=== PATIENT | male | born 1940 | race Two or more races ===

== ENCOUNTER 2020-02-21 13:44 | Inpatient (IN) | payer MEDICARE, OTHER ==
[~2020-02-21] VITALS: Ht 177.8 cm; Wt 96.7 kg
[2020-02-21] MEDS ORDERED: SODIUM CHLORIDE 0.9% 1,000 ML IV ONE (14:15)
[2020-02-21 14:19] LABS: Basophils # (auto) 0 10 ^3/uL (0-0.2); Basophils % (auto) 0.3 % (0.0-2.0); Eosinophils # (auto) 0 10 ^3/uL (0-0.8); Eosinophils % (auto) 0.1 % (0.0-7.0); Hematocrit 40.7 % (41.0-53.0); Hemoglobin 13.9 g/dL (13.5-17.5); Lymphocytes # (auto) 0.8 10 ^3/uL (0.4-5.4); Lymphocytes % (auto) 10.5 % (10.0-50.0); Mean Corpuscular Hemoglobin 29.8 pg (28.0-32.0); Mean Corpuscular Hgb Conc. 34.1 g/dL (32.0-36.0); Mean Corpuscular Volume 87.3 fL (80.0-100.0); Monocytes # (auto) 0.6 10 ^3/uL (0-1.3); Monocytes % (auto) 8.4 % (0.0-12.0); Neutrophils % (auto) 80.7 % (37.0-80.0); Nucleated Red Blood Cells % 0.2 %; Platelet Count (auto) 258 10^3/uL (140-450); Red Blood Cells 4.66 10^6/uL (4.5-5.90); Red Cell Distribution Width 13.6 % (11.8-14.3); White Blood Cell 7.4 10^3/uL (4.4-10.8)
[2020-02-21 14:31] LABS: INR 1.04 (0.9-1.15); Partial Thromboplastin Time 26.1 sec (23.0-31.2)
[2020-02-21 14:34] LABS: Alanine Aminotransferase 26 U/L (16-61); Albumin 3.4 g/dL (3.4-5.0); Anion Gap 9 (5-15); BUN/Creatinine Ratio 22.7; Blood Urea Nitrogen 63 mg/dL (7-18); Calcium 8.8 mg/dL (8.5-10.1); Carbon Dioxide 20 mmol/L (21-32); Chloride 104 mmol/L (98-107); GFR African American 28 mL/min; GFR Non-African American 24 mL/min; Glucose 110 mg/dL (74-106); Potassium 4.6 mmol/L (3.5-5.1); Sodium 133 mmol/L (136-145)
[2020-02-21 14:39] LABS: Alkaline Phosphatase 64 U/L (45-117); Aspartate Aminotransferase 39 U/L (15-37); Bilirubin, Total 0.8 mg/dL (0.2-1.0); Total Protein 8.1 g/dL (6.4-8.2)
[2020-02-21] MEDS ORDERED: NITROGLYCERIN 0.4 MG SL TAB SL PRN (17:45)
[2020-02-21] MEDS ORDERED: ONDANSETRON HCL 4 MG/2 ML VIAL IV PRN (17:45)
[2020-02-21] MEDS ORDERED: MORPHINE SULF INJ 2 MG/ML SYRINGE 1ML IV PRN (17:45)
[2020-02-21] MEDS ORDERED: REMDESIVIR PER PHARMACY 0 ML IV SCH (17:45)
[2020-02-22 07:46] LABS: Basophils # (auto) 0.1 10 ^3/uL (0-0.2); Basophils % (auto) 1.5 % (0.0-2.0); Eosinophils # (auto) 0 10 ^3/uL (0-0.8); Hematocrit 36.6 % (41.0-53.0); Hemoglobin 12.4 g/dL (13.5-17.5); Lymphocytes # (auto) 0.4 10 ^3/uL (0.4-5.4); Lymphocytes % (auto) 7.2 % (10.0-50.0); Mean Corpuscular Hemoglobin 29.9 pg (28.0-32.0); Mean Corpuscular Hgb Conc. 33.9 g/dL (32.0-36.0); Mean Corpuscular Volume 88.3 fL (80.0-100.0); Monocytes # (auto) 0.4 10 ^3/uL (0-1.3); Neutrophils # (auto) 4.3 10 ^3/uL (1.6-8.6); Neutrophils % (auto) 84.3 % (37.0-80.0); Nucleated Red Blood Cells % 0.3 %; Platelet Count (auto) 183 10^3/uL (140-450); Red Blood Cells 4.14 10^6/uL (4.5-5.90); Red Cell Distribution Width 13.9 % (11.8-14.3); White Blood Cell 5.1 10^3/uL (4.4-10.8)
[2020-02-22 08:07] LABS: Potassium 4.8 mmol/L (3.5-5.1)
[2020-02-22 08:48] LABS: Albumin 2.7 g/dL (3.4-5.0); BUN/Creatinine Ratio 23.8; Bilirubin, Total 0.7 mg/dL (0.2-1.0); Calcium 8.2 mg/dL (8.5-10.1); Total Protein 6.9 g/dL (6.4-8.2)
[2020-02-22] MEDS ORDERED: cefTRIAXone 1GM/50ML D5W 50 ML IV ONE ×2 (11:30→11:35)
[2020-02-22] MEDS ORDERED: SODIUM CHLORIDE 0.9% 1,000 ML IV ONE (11:30)
[2020-02-22] MEDS: CHOLECALCIFEROL (VITD3) 2,000 UNIT CAP PO SCH (11:30)
[2020-02-22] MEDS: ZINC SULFATE 220mg CAP or TAB PO SCH (11:42)
[2020-02-22] MEDS: PANTOPRAZOLE 40 MG/10 ML VIAL INJ IV SCH (11:42)
[2020-02-22] MEDS: ASCORBIC ACID 1,000 MG TAB PO SCH (11:43)
[2020-02-22] MEDS: ENOXAPARIN SOD 40 MG/0.4 ML SYRINGE SC SCH (11:43)
[2020-02-22] MEDS: D5W/SOD CHL 0.45% 1,000 ML IV SCH (14:00)
[2020-02-22] MEDS: ACETAMINOPHEN 325 MG TAB PO PRN (20:29)
[2020-02-22] MEDS ORDERED: REMDESIVIR 200 MG in NS 210ml LOADING DOSE ADULT IV ONE (21:00)
[2020-02-23] VITALS (10 sets, daily range): BP systolic 107–155; BP diastolic 52–73
[2020-02-23] MEDS: D5W/SOD CHL 0.45% 1,000 ML IV SCH ×2 (01:29→11:28)
[2020-02-23 09:37] LABS: Calcium 8.3 mg/dL (8.5-10.1); Potassium 3.7 mmol/L (3.5-5.1)
[2020-02-23 09:43] LABS: Albumin 2.7 g/dL (3.4-5.0); BUN/Creatinine Ratio 23.9; Bilirubin, Direct 0.3 mg/dL (0-0.2); Bilirubin, Total 0.6 mg/dL (0.2-1.0); Total Protein 7.4 g/dL (6.4-8.2)
[2020-02-23] MEDS: ZINC SULFATE 220mg CAP or TAB PO SCH (10:00)
[2020-02-23] MEDS: ASCORBIC ACID 1,000 MG TAB PO SCH (10:00)
[2020-02-23] MEDS: CHOLECALCIFEROL (VITD3) 2,000 UNIT CAP PO SCH (10:00)
[2020-02-23] MEDS: cefTRIAXone 1GM/50ML D5W 50 ML IV SCH (11:28)
[2020-02-23] MEDS: ENOXAPARIN SOD 40 MG/0.4 ML SYRINGE SC SCH (11:29)
[2020-02-23] MEDS: PANTOPRAZOLE 40 MG/10 ML VIAL INJ IV SCH (13:44)
[2020-02-23] MEDS: REMDESIVIR 100 MG in SODIUM CHL 0.9% 250 ML IV SCH (16:36)
[2020-02-24] VITALS (9 sets, daily range): BP systolic 108–149; BP diastolic 53–73
[2020-02-24] MEDS: D5W/SOD CHL 0.45% 1,000 ML IV SCH (03:30)
[2020-02-24 08:22] LABS: Potassium 3.6 mmol/L (3.5-5.1)
[2020-02-24 08:35] LABS: Albumin 2.6 g/dL (3.4-5.0); Bilirubin, Direct 0.3 mg/dL (0-0.2); Bilirubin, Total 0.6 mg/dL (0.2-1.0); Calcium 8.3 mg/dL (8.5-10.1); Total Protein 7.2 g/dL (6.4-8.2)
[2020-02-24] MEDS: cefTRIAXone 1GM/50ML D5W 50 ML IV SCH (09:00)
[2020-02-24] MEDS: PANTOPRAZOLE 40 MG/10 ML VIAL INJ IV SCH (10:00)
[2020-02-24] MEDS: ASCORBIC ACID 1,000 MG TAB PO SCH (10:00)
[2020-02-24] MEDS: ZINC SULFATE 220mg CAP or TAB PO SCH (10:00)
[2020-02-24] MEDS: CHOLECALCIFEROL (VITD3) 2,000 UNIT CAP PO SCH (10:00)
[2020-02-24] MEDS: ENOXAPARIN SOD 40 MG/0.4 ML SYRINGE SC SCH (10:00)
[2020-02-24] MEDS ORDERED: [UNRECOGNIZED DRUG - OTHER] IV SCH (11:15)
[2020-02-24] MEDS ORDERED: POTASSIUM CHLORIDE IV SCH (11:15)
[2020-02-24] MEDS ORDERED: SODIUM BICARBONATE IV SCH (11:15)
[2020-02-24] MEDS: Ensure HIGH Protein Chocolate 8oz Bottle PO SCH ×2 (12:00→18:00)
[2020-02-24] MEDS: DexAMETHasone SOD PHOS 10MG/1ML VIAL INJ IV SCH (14:45)
[2020-02-24] MEDS ORDERED: SODIUM CHLORIDE 0.9% 1,000 ML IV ONE (15:00)
[2020-02-24] MEDS: REMDESIVIR 100 MG in SODIUM CHL 0.9% 250 ML IV SCH (16:24)
[2020-02-24] MEDS: SODIUM BICARBONATE 50ML VIAL 50 ML in D5W/SOD CHL 0.45%/KCL 20MEQ 1,000 ML IV SCH (20:23)
[2020-02-25] MEDS: SODIUM BICARBONATE 50ML VIAL 50 ML in D5W/SOD CHL 0.45%/KCL 20MEQ 1,000 ML IV SCH ×2 (02:53→17:13)
[2020-02-25] MEDS: Ensure HIGH Protein Chocolate 8oz Bottle PO SCH ×3 (08:00→18:39)
[2020-02-25 08:17] VITALS: BP 117/67
[2020-02-25 09:57] LABS: BUN/Creatinine Ratio 30.5; Calcium 8.1 mg/dL (8.5-10.1); Potassium 3.3 mmol/L (3.5-5.1)
[2020-02-25 10:13] LABS: Albumin 2.3 g/dL (3.4-5.0); Bilirubin, Direct 0.2 mg/dL (0-0.2)
[2020-02-25 10:16] LABS: Bilirubin, Total 0.4 mg/dL (0.2-1.0); Total Protein 6.8 g/dL (6.4-8.2)
[2020-02-25] MEDS: ZINC SULFATE 220mg CAP or TAB PO SCH (10:27)
[2020-02-25] MEDS: ASCORBIC ACID 1,000 MG TAB PO SCH (10:27)
[2020-02-25] MEDS: PANTOPRAZOLE 40 MG/10 ML VIAL INJ IV SCH (10:27)
[2020-02-25] MEDS: DexAMETHasone SOD PHOS 10MG/1ML VIAL INJ IV SCH (10:27)
[2020-02-25] MEDS: cefTRIAXone 1GM/50ML D5W 50 ML IV SCH (10:27)
[2020-02-25] MEDS: ENOXAPARIN SOD 40 MG/0.4 ML SYRINGE SC SCH (10:28)
[2020-02-25] MEDS: CHOLECALCIFEROL (VITD3) 2,000 UNIT CAP PO SCH (10:28)
[2020-02-25] MEDS ORDERED: POTASSIUM CHL 20 Meq TABLET PO ONE (11:15)
[2020-02-25] MEDS: REMDESIVIR 100 MG in SODIUM CHL 0.9% 250 ML IV SCH (15:41)
[2020-02-25 16:25] VITALS: BP 119/70
[2020-02-25 22:00] VITALS: BP 155/67
[2020-02-26 05:53] VITALS: BP 122/71
[2020-02-26] MEDS: SODIUM BICARBONATE 50ML VIAL 50 ML in D5W/SOD CHL 0.45%/KCL 20MEQ 1,000 ML IV SCH ×2 (05:58→22:20)
[2020-02-26 07:46] LABS: Albumin 2.1 g/dL (3.4-5.0); Calcium 7.5 mg/dL (8.5-10.1); Potassium 4.1 mmol/L (3.5-5.1)
[2020-02-26 07:51] LABS: BUN/Creatinine Ratio 33.8; Bilirubin, Direct 0.2 mg/dL (0-0.2); Bilirubin, Total 0.5 mg/dL (0.2-1.0)
[2020-02-26 09:00] VITALS: BP 117/70
[2020-02-26] MEDS: DexAMETHasone SOD PHOS 10MG/1ML VIAL INJ IV SCH (09:52)
[2020-02-26] MEDS: cefTRIAXone 1GM/50ML D5W 50 ML IV SCH (09:52)
[2020-02-26] MEDS: PANTOPRAZOLE 40 MG/10 ML VIAL INJ IV SCH (09:52)
[2020-02-26] MEDS: ASCORBIC ACID 1,000 MG TAB PO SCH (09:53)
[2020-02-26] MEDS: CHOLECALCIFEROL (VITD3) 2,000 UNIT CAP PO SCH (09:53)
[2020-02-26] MEDS: ZINC SULFATE 220mg CAP or TAB PO SCH (09:53)
[2020-02-26] MEDS: Ensure HIGH Protein Chocolate 8oz Bottle PO SCH ×3 (09:53→18:00)
[2020-02-26] MEDS: ENOXAPARIN SOD 40 MG/0.4 ML SYRINGE SC SCH (09:53)
[2020-02-26] MEDS: REMDESIVIR 100 MG in SODIUM CHL 0.9% 250 ML IV SCH (15:40)
[2020-02-26 16:00] VITALS: BP 119/62
[2020-02-26] MEDS ORDERED: SODIUM BICARBONATE 8.4 % INJ 50ML VIAL IV ONE (20:06)
[2020-02-26 22:18] VITALS: BP 136/53
[2020-02-27 00:39] VITALS: BP 136/53
[2020-02-27] MEDS: diphenhdrAMINE HCL 25 MG CAP PO PRN ×2 (01:37→23:03)
[2020-02-27 05:08] VITALS: BP 112/56
[2020-02-27] MEDS: SODIUM BICARBONATE 50ML VIAL 50 ML in D5W/SOD CHL 0.45%/KCL 20MEQ 1,000 ML IV SCH ×2 (07:25→20:08)
[2020-02-27 07:58] LABS: Albumin 2.2 g/dL (3.4-5.0); BUN/Creatinine Ratio 28.8
[2020-02-27 08:00] VITALS: BP 127/63
[2020-02-27 08:08] LABS: Bilirubin, Total 0.5 mg/dL (0.2-1.0); Calcium 7.3 mg/dL (8.5-10.1); Total Protein 5.6 g/dL (6.4-8.2)
[2020-02-27] MEDS: Ensure HIGH Protein Chocolate 8oz Bottle PO SCH ×3 (08:38→18:54)
[2020-02-27] MEDS: PANTOPRAZOLE 40 MG/10 ML VIAL INJ IV SCH (08:39)
[2020-02-27] MEDS: cefTRIAXone 1GM/50ML D5W 50 ML IV SCH (08:39)
[2020-02-27] MEDS: DexAMETHasone SOD PHOS 10MG/1ML VIAL INJ IV SCH (08:39)
[2020-02-27] MEDS: ASCORBIC ACID 1,000 MG TAB PO SCH (08:40)
[2020-02-27] MEDS: CHOLECALCIFEROL (VITD3) 2,000 UNIT CAP PO SCH (08:40)
[2020-02-27] MEDS: ENOXAPARIN SOD 40 MG/0.4 ML SYRINGE SC SCH (08:40)
[2020-02-27] MEDS: ZINC SULFATE 220mg CAP or TAB PO SCH (08:40)
[2020-02-27 16:00] VITALS: BP 121/65
[2020-02-28] VITALS: BP 136/84
[2020-02-28] MEDS: SODIUM BICARBONATE 50ML VIAL 50 ML in D5W/SOD CHL 0.45%/KCL 20MEQ 1,000 ML IV SCH ×2 (02:33→09:41)
[2020-02-28 08:00] VITALS: BP 143/60
[2020-02-28] MEDS: Ensure HIGH Protein Chocolate 8oz Bottle PO SCH ×3 (08:56→18:53)
[2020-02-28] MEDS: DexAMETHasone SOD PHOS 10MG/1ML VIAL INJ IV SCH (08:56)
[2020-02-28] MEDS: cefTRIAXone 1GM/50ML D5W 50 ML IV SCH (08:56)
[2020-02-28] MEDS: PANTOPRAZOLE 40 MG/10 ML VIAL INJ IV SCH (08:57)
[2020-02-28] MEDS: ZINC SULFATE 220mg CAP or TAB PO SCH (08:57)
[2020-02-28] MEDS: ASCORBIC ACID 1,000 MG TAB PO SCH (08:57)
[2020-02-28] MEDS: ENOXAPARIN SOD 40 MG/0.4 ML SYRINGE SC SCH (08:57)
[2020-02-28] MEDS: CHOLECALCIFEROL (VITD3) 2,000 UNIT CAP PO SCH (08:57)
[2020-02-28 16:00] VITALS: BP 150/88
[2020-02-28] MEDS: diphenhdrAMINE HCL 25 MG CAP PO PRN (21:53)
[2020-02-29] VITALS: BP 138/77
[2020-02-29 06:50] LABS: Basophils # (auto) 0 10 ^3/uL (0-0.2); Basophils % (auto) 0.1 % (0.0-2.0); Eosinophils # (auto) 0 10 ^3/uL (0-0.8); Hematocrit 33.2 % (41.0-53.0); Hemoglobin 11.2 g/dL (13.5-17.5); Lymphocytes # (auto) 0.2 10 ^3/uL (0.4-5.4); Mean Corpuscular Hemoglobin 29.6 pg (28.0-32.0); Mean Corpuscular Hgb Conc. 33.8 g/dL (32.0-36.0); Mean Corpuscular Volume 87.6 fL (80.0-100.0); Monocytes % (auto) 8.8 % (0.0-12.0); Neutrophils # (auto) 10.2 10 ^3/uL (1.6-8.6); Neutrophils % (auto) 89.1 % (37.0-80.0); Platelet Count (auto) 246 10^3/uL (140-450); Red Blood Cells 3.79 10^6/uL (4.5-5.90); Red Cell Distribution Width 13.7 % (11.8-14.3); White Blood Cell 11.4 10^3/uL (4.4-10.8)
[2020-02-29 07:15] LABS: Potassium 4.2 mmol/L (3.5-5.1)
[2020-02-29 07:26] LABS: BUN/Creatinine Ratio 27.7; Calcium 7.7 mg/dL (8.5-10.1)
[2020-02-29] MEDS: Ensure HIGH Protein Chocolate 8oz Bottle PO SCH ×3 (08:00→18:27)
[2020-02-29 09:00] VITALS: BP 152/86
[2020-02-29] MEDS: PANTOPRAZOLE 40 MG/10 ML VIAL INJ IV SCH (10:25)
[2020-02-29] MEDS: DexAMETHasone SOD PHOS 10MG/1ML VIAL INJ IV SCH (10:25)
[2020-02-29] MEDS: ZINC SULFATE 220mg CAP or TAB PO SCH (10:25)
[2020-02-29] MEDS: ENOXAPARIN SOD 40 MG/0.4 ML SYRINGE SC SCH (10:25)
[2020-02-29] MEDS: CHOLECALCIFEROL (VITD3) 2,000 UNIT CAP PO SCH (10:26)
[2020-02-29] MEDS: cefTRIAXone 1GM/50ML D5W 50 ML IV SCH (10:26)
[2020-02-29] MEDS: ASCORBIC ACID 1,000 MG TAB PO SCH (10:26)
[2020-02-29] MEDS: SODIUM BICARBONATE 50ML VIAL 50 ML in D5W/SOD CHL 0.45%/KCL 20MEQ 1,000 ML IV SCH (12:10)
[2020-02-29 16:33] VITALS: BP 141/73
[2020-02-29] MEDS: DOXYCYCLINE 100 MG TAB/CAP PO SCH (21:43)
[2020-02-29] MEDS: diphenhdrAMINE HCL 25 MG CAP PO PRN (21:43)
[2020-03-01] VITALS: BP 149/78
[2020-03-01] MEDS: SODIUM BICARBONATE 50ML VIAL 50 ML in D5W/SOD CHL 0.45%/KCL 20MEQ 1,000 ML IV SCH ×3 (01:05→23:42)
[2020-03-01 08:00] VITALS: BP 125/65
[2020-03-01] MEDS: Ensure HIGH Protein Chocolate 8oz Bottle PO SCH ×3 (08:00→21:00)
[2020-03-01] MEDS: CHOLECALCIFEROL (VITD3) 2,000 UNIT CAP PO SCH (10:04)
[2020-03-01] MEDS: DexAMETHasone SOD PHOS 10MG/1ML VIAL INJ IV SCH (10:04)
[2020-03-01] MEDS: ZINC SULFATE 220mg CAP or TAB PO SCH (10:04)
[2020-03-01] MEDS: DOXYCYCLINE 100 MG TAB/CAP PO SCH ×2 (10:04→21:00)
[2020-03-01] MEDS: PANTOPRAZOLE 40 MG/10 ML VIAL INJ IV SCH (10:04)
[2020-03-01] MEDS: ASCORBIC ACID 1,000 MG TAB PO SCH (10:04)
[2020-03-01] MEDS: ENOXAPARIN SOD 40 MG/0.4 ML SYRINGE SC SCH (10:05)
[2020-03-01 16:00] VITALS: BP 134/64
[2020-03-01] MEDS: diphenhdrAMINE HCL 25 MG CAP PO PRN (21:15)
[2020-03-01] MEDS ORDERED: D5W/SOD CHL 0.45%/KCL 20MEQ 1,000 ML IV ONE (23:25)
[2020-03-01] MEDS ORDERED: SODIUM BICARBONATE 8.4 % INJ 50ML VIAL IV ONE (23:29)
[2020-03-02] VITALS: BP 145/81
[2020-03-02] MEDS: Ensure HIGH Protein Chocolate 8oz Bottle PO SCH ×3 (09:07→17:55)
[2020-03-02] MEDS: DexAMETHasone SOD PHOS 10MG/1ML VIAL INJ IV SCH (09:07)
[2020-03-02] MEDS: PANTOPRAZOLE 40 MG/10 ML VIAL INJ IV SCH (09:07)
[2020-03-02] MEDS: ASCORBIC ACID 1,000 MG TAB PO SCH (09:08)
[2020-03-02] MEDS: ENOXAPARIN SOD 40 MG/0.4 ML SYRINGE SC SCH (09:08)
[2020-03-02] MEDS: CHOLECALCIFEROL (VITD3) 2,000 UNIT CAP PO SCH (09:08)
[2020-03-02] MEDS: DOXYCYCLINE 100 MG TAB/CAP PO SCH ×2 (09:08→20:56)
[2020-03-02] MEDS: ZINC SULFATE 220mg CAP or TAB PO SCH (09:08)
[2020-03-02 11:52] LABS: Basophils # (auto) 0 10 ^3/uL (0-0.2); Basophils % (auto) 0.2 % (0.0-2.0); Eosinophils # (auto) 0 10 ^3/uL (0-0.8); Eosinophils % (auto) 0.1 % (0.0-7.0); Hematocrit 35.4 % (41.0-53.0); Hemoglobin 12.4 g/dL (13.5-17.5); Lymphocytes # (auto) 0.1 10 ^3/uL (0.4-5.4); Lymphocytes % (auto) 1.1 % (10.0-50.0); Mean Corpuscular Hemoglobin 30.7 pg (28.0-32.0); Mean Corpuscular Hgb Conc. 35.1 g/dL (32.0-36.0); Mean Corpuscular Volume 87.4 fL (80.0-100.0); Monocytes # (auto) 0.5 10 ^3/uL (0-1.3); Neutrophils # (auto) 8.9 10 ^3/uL (1.6-8.6); Neutrophils % (auto) 93.6 % (37.0-80.0); Platelet Count (auto) 238 10^3/uL (140-450); Red Blood Cells 4.05 10^6/uL (4.5-5.90); Red Cell Distribution Width 13.8 % (11.8-14.3); White Blood Cell 9.5 10^3/uL (4.4-10.8)
[2020-03-02 12:12] LABS: INR 1.08 (0.9-1.15)
[2020-03-02] MEDS ORDERED: TPN PER PHARMACY 0 ML IV SCH (12:15)
[2020-03-02 14:15] LABS: Anion Gap 7 (5-15); Blood Urea Nitrogen 27 mg/dL (7-18); Carbon Dioxide 27 mmol/L (21-32); Chloride 103 mmol/L (98-107); Glucose 98 mg/dL (74-106); Potassium 4.2 mmol/L (3.5-5.1); Sodium 137 mmol/L (136-145)
[2020-03-02 14:16] LABS: Alanine Aminotransferase 72 U/L (16-61); Alkaline Phosphatase 58 U/L (45-117); Aspartate Aminotransferase 46 U/L (15-37); Bilirubin, Total 0.9 mg/dL (0.2-1.0); Calcium 8.1 mg/dL (8.5-10.1); GFR African American 85 mL/min; GFR Non-African American 70 mL/min; Total Protein 5.8 g/dL (6.4-8.2)
[2020-03-02 14:31] LABS: Magnesium 1.8 mg/dL (1.6-2.6); Phosphorus 3.5 mg/dL (2.5-4.90)
[2020-03-02 16:00] VITALS: BP 101/63
[2020-03-02] MEDS: SODIUM BICARBONATE 50ML VIAL 50 ML in D5W/SOD CHL 0.45%/KCL 20MEQ 1,000 ML IV SCH (17:55)
[2020-03-02] MEDS ORDERED: PPN PER PHARMACY IV NR ×5 (20:00)
[2020-03-02] MEDS: diphenhdrAMINE HCL 25 MG CAP PO PRN (20:56)
[2020-03-02] MEDS: ACETAMINOPHEN 325 MG TAB PO PRN (22:50)
[2020-03-03] VITALS: BP 126/71
[2020-03-03 07:52] VITALS: BP 134/65
[2020-03-03] MEDS: PANTOPRAZOLE 40 MG/10 ML VIAL INJ IV SCH (09:02)
[2020-03-03] MEDS: Ensure HIGH Protein Chocolate 8oz Bottle PO SCH ×3 (09:02→18:13)
[2020-03-03] MEDS: DOXYCYCLINE 100 MG TAB/CAP PO SCH ×2 (09:02→22:06)
[2020-03-03] MEDS: DexAMETHasone SOD PHOS 10MG/1ML VIAL INJ IV SCH (09:02)
[2020-03-03] MEDS: ZINC SULFATE 220mg CAP or TAB PO SCH (09:02)
[2020-03-03] MEDS: CHOLECALCIFEROL (VITD3) 2,000 UNIT CAP PO SCH (09:03)
[2020-03-03] MEDS: ENOXAPARIN SOD 40 MG/0.4 ML SYRINGE SC SCH (09:03)
[2020-03-03] MEDS: ASCORBIC ACID 1,000 MG TAB PO SCH (09:03)
[2020-03-03 11:36] LABS: Potassium 4.2 mmol/L (3.5-5.1)
[2020-03-03 11:43] LABS: Albumin 2.1 g/dL (3.4-5.0); BUN/Creatinine Ratio 21.7; Calcium 8.2 mg/dL (8.5-10.1); Magnesium 1.9 mg/dL (1.6-2.6); Phosphorus 4.1 mg/dL (2.5-4.90); Pre Albumin 15.4 mg/dL (20.0-40.0); Total Protein 6.4 g/dL (6.4-8.2)
[2020-03-03] MEDS ORDERED: DEXTROSE (50%) 50ML SYRG IV SCH (12:00)
[2020-03-03] MEDS: InsuLIN REG 1unit/0.01ml Soln (100units/ml) SC SCH ×3 (12:00→23:32)
[2020-03-03] MEDS: ACCU-CHEK COMFORT CURVE STRIP VI SCH ×3 (12:28→23:32)
[2020-03-03] MEDS ORDERED: LIDOCAINE 1% (LOCAL ANESTH.) PF 5ml SDV ID ONE (12:30)
[2020-03-03] MEDS ORDERED: HYDROmorphone HCL 2 MG/ML VL IV PRN (12:45)
[2020-03-03 16:00] VITALS: BP 128/71
[2020-03-03] MEDS ORDERED: PPN PER PHARMACY IV NR ×7 (20:00)
[2020-03-03] MEDS: TEMAZEPAM 15 MG CAP PO PRN (22:06)
[2020-03-03] MEDS: SODIUM CHLOR 0.9% PF (SALINE LOCK) 10ML VIAL/SYR IV SCH (22:06)
[2020-03-04] VITALS: BP 134/70
[2020-03-04] MEDS: ACCU-CHEK COMFORT CURVE STRIP VI SCH ×3 (05:34→17:42)
[2020-03-04] MEDS: InsuLIN REG 1unit/0.01ml Soln (100units/ml) SC SCH ×3 (05:35→17:42)
[2020-03-04 08:00] VITALS: BP 134/50
[2020-03-04 09:12] LABS: Albumin 1.9 g/dL (3.4-5.0); Calcium 8.2 mg/dL (8.5-10.1); Potassium 4.7 mmol/L (3.5-5.1)
[2020-03-04 09:17] LABS: Phosphorus 4.3 mg/dL (2.5-4.90); Total Protein 6.4 g/dL (6.4-8.2)
[2020-03-04] MEDS: Ensure HIGH Protein Chocolate 8oz Bottle PO SCH ×3 (09:25→17:42)
[2020-03-04] MEDS: ASCORBIC ACID 1,000 MG TAB PO SCH (11:47)
[2020-03-04] MEDS: ZINC SULFATE 220mg CAP or TAB PO SCH (11:47)
[2020-03-04] MEDS: DexAMETHasone SOD PHOS 10MG/1ML VIAL INJ IV SCH (11:47)
[2020-03-04] MEDS: CHOLECALCIFEROL (VITD3) 2,000 UNIT CAP PO SCH (11:48)
[2020-03-04] MEDS: DOXYCYCLINE 100 MG TAB/CAP PO SCH ×2 (11:48→21:56)
[2020-03-04] MEDS: ENOXAPARIN SOD 40 MG/0.4 ML SYRINGE SC SCH (11:48)
[2020-03-04] MEDS: PANTOPRAZOLE 40 MG/10 ML VIAL INJ IV SCH (11:48)
[2020-03-04] MEDS: SODIUM CHLOR 0.9% PF (SALINE LOCK) 10ML VIAL/SYR IV SCH ×2 (11:49→21:55)
[2020-03-04 16:00] VITALS: BP 125/57
[2020-03-04] MEDS ORDERED: TPN PER PHARMACY IV NR ×7 (20:00)
[2020-03-04] MEDS: TEMAZEPAM 15 MG CAP PO PRN (21:56)
[2020-03-05] VITALS: BP 126/68
[2020-03-05] MEDS: InsuLIN REG 1unit/0.01ml Soln (100units/ml) SC SCH ×4 (00:30→18:21)
[2020-03-05] MEDS: ACCU-CHEK COMFORT CURVE STRIP VI SCH ×4 (00:30→18:26)
[2020-03-05 08:00] VITALS: BP 144/71
[2020-03-05] MEDS: Ensure HIGH Protein Chocolate 8oz Bottle PO SCH ×3 (08:00→18:00)
[2020-03-05] MEDS: PANTOPRAZOLE 40 MG/10 ML VIAL INJ IV SCH ×2 (10:00→10:51)
[2020-03-05] MEDS: ZINC SULFATE 220mg CAP or TAB PO SCH (10:50)
[2020-03-05] MEDS: DOXYCYCLINE 100 MG TAB/CAP PO SCH (10:50)
[2020-03-05] MEDS: SODIUM CHLOR 0.9% PF (SALINE LOCK) 10ML VIAL/SYR IV SCH ×2 (10:50→21:14)
[2020-03-05] MEDS: ASCORBIC ACID 1,000 MG TAB PO SCH (10:51)
[2020-03-05] MEDS: DexAMETHasone SOD PHOS 10MG/1ML VIAL INJ IV SCH (10:51)
[2020-03-05] MEDS: CHOLECALCIFEROL (VITD3) 2,000 UNIT CAP PO SCH (10:51)
[2020-03-05 11:36] LABS: Albumin 1.9 g/dL (3.4-5.0); Calcium 8.3 mg/dL (8.5-10.1); Magnesium 2.1 mg/dL (1.6-2.6); Potassium 4.1 mmol/L (3.5-5.1)
[2020-03-05 11:41] LABS: BUN/Creatinine Ratio 32.5; Bilirubin, Total 1.8 mg/dL (0.2-1.0); Phosphorus 4.1 mg/dL (2.5-4.90); Total Protein 6.8 g/dL (6.4-8.2)
[2020-03-05] MEDS: LORazepam 2MG/ML-1ML VIAL IV PRN ×2 (12:12→20:16)
[2020-03-05 16:00] VITALS: BP 114/70
[2020-03-05] MEDS ORDERED: TPN PER PHARMACY IV NR ×7 (20:00)
[2020-03-05 23:53] VITALS: BP 128/73
[2020-03-06] VITALS (13 sets, daily range): BP systolic 98–145; BP diastolic 59–85
[2020-03-06] MEDS: ACCU-CHEK COMFORT CURVE STRIP VI SCH ×5 (00:30→23:36)
[2020-03-06] MEDS: InsuLIN REG 1unit/0.01ml Soln (100units/ml) SC SCH ×5 (00:36→23:55)
[2020-03-06] MEDS: LORazepam 2MG/ML-1ML VIAL IV PRN (04:05)
[2020-03-06] MEDS: Ensure HIGH Protein Chocolate 8oz Bottle PO SCH ×3 (08:00→19:11)
[2020-03-06 08:30] LABS: Calcium 8.1 mg/dL (8.5-10.1); Potassium 4.1 mmol/L (3.5-5.1)
[2020-03-06 08:36] LABS: Albumin 1.6 g/dL (3.4-5.0); BUN/Creatinine Ratio 38.9; Bilirubin, Total 1.8 mg/dL (0.2-1.0); Magnesium 2.6 mg/dL (1.6-2.6); Total Protein 6.7 g/dL (6.4-8.2)
[2020-03-06] MEDS: ASCORBIC ACID 1,000 MG TAB PO SCH (10:00)
[2020-03-06] MEDS: ZINC SULFATE 220mg CAP or TAB PO SCH (10:00)
[2020-03-06] MEDS: PANTOPRAZOLE 40 MG/10 ML VIAL INJ IV SCH (10:00)
[2020-03-06] MEDS: CHOLECALCIFEROL (VITD3) 2,000 UNIT CAP PO SCH (10:00)
[2020-03-06] MEDS: SODIUM CHLOR 0.9% PF (SALINE LOCK) 10ML VIAL/SYR IV SCH ×2 (10:00→21:28)
[2020-03-06] MEDS: DexAMETHasone SOD PHOS 10MG/1ML VIAL INJ IV SCH ×2 (11:03→21:28)
[2020-03-06] MEDS ORDERED: ENOXAPARIN SOD 60 MG/0.6 ML SYRINGE SC ONE (13:00)
[2020-03-06 14:17] LABS: Basophils # (auto) 0 10 ^3/uL (0-0.2); Basophils % (auto) 0.3 % (0.0-2.0); Eosinophils # (auto) 0 10 ^3/uL (0-0.8); Hematocrit 35.2 % (41.0-53.0); Lymphocytes # (auto) 0.1 10 ^3/uL (0.4-5.4); Lymphocytes % (auto) 1.1 % (10.0-50.0); Mean Corpuscular Hemoglobin 30.1 pg (28.0-32.0); Mean Corpuscular Volume 88.7 fL (80.0-100.0); Monocytes # (auto) 0.5 10 ^3/uL (0-1.3); Monocytes % (auto) 3.8 % (0.0-12.0); Neutrophils # (auto) 12.2 10 ^3/uL (1.6-8.6); Neutrophils % (auto) 94.8 % (37.0-80.0); Platelet Count (auto) 104 10^3/uL (140-450); Red Blood Cells 3.97 10^6/uL (4.5-5.90); Red Cell Distribution Width 14.1 % (11.8-14.3); White Blood Cell 12.9 10^3/uL (4.4-10.8)
[2020-03-06] MEDS ORDERED: SUCCINYLCHOLINE CHLORIDE 20 MG/ML 10ML VIAL IV ONE (16:30)
[2020-03-06] MEDS ORDERED: ETOMIDATE (2MG/ML) 20ML VIAL IV ONE (16:30)
[2020-03-06] MEDS: MIDAZOLAM DRIP 50 mg/50mL 50 ML IV SCH (16:58)
[2020-03-06] MEDS: fentaNYL Drip 2500mCg/250mlNS 250 ML IV SCH (20:00)
[2020-03-06] MEDS ORDERED: TPN PER PHARMACY IV NR ×6 (20:00)
[2020-03-06] MEDS ORDERED: SODIUM CHLORIDE 0.9% 500 ML IV ONE (20:30)
[2020-03-06] MEDS ORDERED: NOREPINEPHRINE 8 MG/250ML KIT 250 ML IV ONE (20:35)
[2020-03-06] MEDS ORDERED: PROPOFOL 100 ML IV ONE (20:35)
[2020-03-06] MEDS: PROPOFOL 100 ML IV SCH (21:00)
[2020-03-06] MEDS: NOREPINEPHRINE 8 MG/250ML KIT 250 ML IV SCH (21:00)
[2020-03-06] MEDS: D5W/SOD CHL 0.45% 1,000 ML IV SCH (21:19)
[2020-03-06] MEDS: PIPERACILLIN-TAZOB 3.375GM 100 ML IV SCH (22:00)
[2020-03-07] VITALS (76 sets, daily range): BP systolic 80–117; BP diastolic 48–66
[2020-03-07 05:27] LABS: Chloride 103 mmol/L (98-107); Potassium 5.4 mmol/L (3.5-5.1); Sodium 135 mmol/L (136-145)
[2020-03-07 05:35] LABS: Alanine Aminotransferase 62 U/L (16-61); Albumin 1.5 g/dL (3.4-5.0); Alkaline Phosphatase 113 U/L (45-117); Anion Gap 7 (5-15); Aspartate Aminotransferase 45 U/L (15-37); BUN/Creatinine Ratio 32.1; Blood Urea Nitrogen 72 mg/dL (7-18); Calcium 7.5 mg/dL (8.5-10.1); Carbon Dioxide 25 mmol/L (21-32); GFR African American 37 mL/min; GFR Non-African American 30 mL/min; Glucose 276 mg/dL (74-106); Magnesium 2.9 mg/dL (1.6-2.6); Total Protein 6.4 g/dL (6.4-8.2)
[2020-03-07 05:42] LABS: Phosphorus > 9.0 mg/dL (2.5-4.90)
[2020-03-07] MEDS: PIPERACILLIN-TAZOB 3.375GM 100 ML IV SCH ×3 (05:50→23:07)
[2020-03-07] MEDS: ACCU-CHEK COMFORT CURVE STRIP VI SCH ×3 (05:59→18:15)
[2020-03-07] MEDS: InsuLIN REG 1unit/0.01ml Soln (100units/ml) SC SCH ×3 (05:59→18:00)
[2020-03-07] MEDS: D5W/SOD CHL 0.45% 1,000 ML IV SCH ×2 (06:30→16:30)
[2020-03-07] MEDS ORDERED: SODIUM BICARBONATE 8.4 % INJ 50ML VIAL IV ONE ×2 (06:30→18:30)
[2020-03-07] MEDS ORDERED: DEXTROSE (50%) 50ML SYRG IV ONE (06:30)
[2020-03-07] MEDS ORDERED: CALCIUM GLUC 4.65meq/50ml D5AE 50 ML IV ONE (06:30)
[2020-03-07] MEDS ORDERED: InsuLIN REG 1unit/0.01ml Soln (100units/ml) IV ONE (06:30)
[2020-03-07] MEDS ORDERED: SODIUM BICARBONATE 8.4% INJ 50ML SYRINGE ONE (06:43)
[2020-03-07] MEDS: Ensure HIGH Protein Chocolate 8oz Bottle PO SCH ×3 (08:00→18:00)
[2020-03-07] MEDS: DexAMETHasone SOD PHOS 10MG/1ML VIAL INJ IV SCH ×2 (09:00→23:02)
[2020-03-07] MEDS: ZINC SULFATE 220mg CAP or TAB PO SCH (09:00)
[2020-03-07] MEDS: ENOXAPARIN SOD 60 MG/0.6 ML SYRINGE SC SCH (09:00)
[2020-03-07] MEDS: ASCORBIC ACID 1,000 MG TAB PO SCH (09:00)
[2020-03-07] MEDS: SODIUM CHLOR 0.9% PF (SALINE LOCK) 10ML VIAL/SYR IV SCH ×2 (09:00→23:03)
[2020-03-07] MEDS ORDERED: DexAMETHasone SOD PHOS 10MG/1ML VIAL INJ IV ONE (10:00)
[2020-03-07] MEDS: PANTOPRAZOLE 40 MG/10 ML VIAL INJ IV SCH (10:00)
[2020-03-07] MEDS: CHOLECALCIFEROL (VITD3) 2,000 UNIT CAP PO SCH (10:00)
[2020-03-07] MEDS: MIDAZOLAM DRIP 50 mg/50mL 50 ML IV SCH (13:43)
[2020-03-07] MEDS: VASOPRESSIN 50 UNITS in D5W 5% 247.5 ML IV SCH (18:30)
[2020-03-07] MEDS: NOREPINEPHRINE 8 MG/250ML KIT 250 ML IV SCH (18:56)
[2020-03-07] MEDS: fentaNYL Drip 2500mCg/250mlNS 250 ML IV SCH (19:15)
[2020-03-07 19:23] LABS: Calcium 7.1 mg/dL (8.5-10.1); Potassium 5.3 mmol/L (3.5-5.1)
[2020-03-07] MEDS: ALBUTEROL SULF 2.5 MG/0.5ML(0.5%) NEB SOLN NEB SCH ×2 (19:24→23:29)
[2020-03-07 19:25] LABS: BUN/Creatinine Ratio 22.1
[2020-03-07] MEDS: TPN PER PHARMACY IV NR ×6 (20:00)
[2020-03-07] MEDS: PROPOFOL 100 ML IV SCH (20:30)
[2020-03-08] VITALS (91 sets, daily range): BP systolic 78–131; BP diastolic 44–98
[2020-03-08] MEDS: NOREPINEPHRINE 8 MG/250ML KIT 250 ML IV SCH (00:13)
[2020-03-08] MEDS: ACCU-CHEK COMFORT CURVE STRIP VI SCH ×4 (00:30→21:08)
[2020-03-08] MEDS: InsuLIN REG 1unit/0.01ml Soln (100units/ml) SC SCH ×4 (00:35→19:02)
[2020-03-08] MEDS: D5W/SOD CHL 0.45% 1,000 ML IV SCH ×3 (05:15→22:36)
[2020-03-08] MEDS: ALBUTEROL SULF 2.5 MG/0.5ML(0.5%) NEB SOLN NEB SCH ×4 (06:10→22:22)
[2020-03-08] MEDS: PIPERACILLIN-TAZOB 3.375GM 100 ML IV SCH ×3 (06:15→22:36)
[2020-03-08 07:24] LABS: Potassium 5.4 mmol/L (3.5-5.1)
[2020-03-08 07:33] LABS: Albumin 1.4 g/dL (3.4-5.0); BUN/Creatinine Ratio 19.6; Bilirubin, Total 2.6 mg/dL (0.2-1.0); Calcium 7.3 mg/dL (8.5-10.1); Magnesium 2.8 mg/dL (1.6-2.6); Phosphorus 8.6 mg/dL (2.5-4.90)
[2020-03-08] MEDS ORDERED: CALCIUM GLUC 4.65meq/50ml D5AE 50 ML IV ONE (07:45)
[2020-03-08] MEDS ORDERED: SODIUM BICARBONATE 8.4 % INJ 50ML VIAL IV ONE (07:45)
[2020-03-08] MEDS ORDERED: SODIUM ZIRCONIUM CYCL 10 GM PAK PO ONE ×2 (07:45)
[2020-03-08] MEDS ORDERED: InsuLIN REG 1unit/0.01ml Soln (100units/ml) IV ONE (07:45)
[2020-03-08] MEDS ORDERED: DEXTROSE (50%) 50ML SYRG IV ONE (07:45)
[2020-03-08] MEDS: Ensure HIGH Protein Chocolate 8oz Bottle PO SCH ×3 (08:00→18:00)
[2020-03-08] MEDS: ASCORBIC ACID 1,000 MG TAB PO SCH (10:00)
[2020-03-08] MEDS: PANTOPRAZOLE 40 MG/10 ML VIAL INJ IV SCH (10:00)
[2020-03-08] MEDS: ZINC SULFATE 220mg CAP or TAB PO SCH (10:42)
[2020-03-08] MEDS: ENOXAPARIN SOD 60 MG/0.6 ML SYRINGE SC SCH (10:43)
[2020-03-08] MEDS: CHOLECALCIFEROL (VITD3) 2,000 UNIT CAP PO SCH (10:43)
[2020-03-08] MEDS: DexAMETHasone SOD PHOS 10MG/1ML VIAL INJ IV SCH ×2 (10:44→22:36)
[2020-03-08] MEDS: SODIUM CHLOR 0.9% PF (SALINE LOCK) 10ML VIAL/SYR IV SCH ×2 (12:04→22:35)
[2020-03-08] MEDS: fentaNYL Drip 2500mCg/250mlNS 250 ML IV SCH (13:34)
[2020-03-08 15:06] LABS: Calcium 6.4 mg/dL (8.5-10.1); Potassium 4.7 mmol/L (3.5-5.1)
[2020-03-08 15:15] LABS: BUN/Creatinine Ratio 17.2
[2020-03-08] MEDS: PROPOFOL 100 ML IV SCH (16:07)
[2020-03-08] MEDS: MIDAZOLAM DRIP 50 mg/50mL 50 ML IV SCH (16:30)
[2020-03-08] MEDS: VASOPRESSIN 50 UNITS in D5W 5% 247.5 ML IV SCH (18:30)
[2020-03-08] MEDS ORDERED: HEPARIN SODIUM (PORCINE) 5000 UNITS/ML 1ML VIAL ONE (19:41)
[2020-03-08] MEDS ORDERED: HEPARIN 1,000 UNITS/ml 1ML VIAL IV ONE ×2 (19:45)
[2020-03-08] MEDS: TPN PER PHARMACY IV NR ×11 (19:51→19:55)
[2020-03-08] MEDS ORDERED: dilTIAZem 25 MG/5 ML VIAL IV ONE ×2 (23:33→23:45)
[2020-03-09] VITALS (93 sets, daily range): BP systolic 81–127; BP diastolic 46–77
[2020-03-09 00:17] LABS: BUN/Creatinine Ratio 15.3; Calcium 6.6 mg/dL (8.5-10.1)
[2020-03-09 00:30] LABS: Potassium 2.9 mmol/L (3.5-5.1)
[2020-03-09] MEDS: InsuLIN REG 1unit/0.01ml Soln (100units/ml) SC SCH ×6 (00:30→23:33)
[2020-03-09] MEDS: ACCU-CHEK COMFORT CURVE STRIP VI SCH ×5 (00:30→23:28)
[2020-03-09] MEDS ORDERED: dilTIAZem 25 MG/5 ML VIAL IV ONE ×2 (01:45→01:50)
[2020-03-09] MEDS ORDERED: dilTIAZem 125mg/125ml BAG KIT 125 ML IV ONE (01:54)
[2020-03-09] MEDS: dilTIAZem 125mg/125ml BAG KIT 125 ML IV SCH ×4 (02:00→23:28)
[2020-03-09] MEDS: NOREPINEPHRINE 8 MG/250ML KIT 250 ML IV SCH ×3 (03:11→13:10)
[2020-03-09] MEDS: PIPERACILLIN-TAZOB 3.375GM 100 ML IV SCH (06:00)
[2020-03-09] MEDS: ALBUTEROL SULF 2.5 MG/0.5ML(0.5%) NEB SOLN NEB SCH ×3 (06:20→19:35)
[2020-03-09 07:23] LABS: Potassium 4.5 mmol/L (3.5-5.1)
[2020-03-09 07:30] LABS: Albumin 1.2 g/dL (3.4-5.0); BUN/Creatinine Ratio 14.5; Bilirubin, Total 2.2 mg/dL (0.2-1.0); Calcium 6.2 mg/dL (8.5-10.1); Magnesium 2.1 mg/dL (1.6-2.6); Total Protein 5.3 g/dL (6.4-8.2)
[2020-03-09] MEDS: Ensure HIGH Protein Chocolate 8oz Bottle PO SCH ×3 (08:00→18:00)
[2020-03-09] MEDS: D5W/SOD CHL 0.45% 1,000 ML IV SCH (08:30)
[2020-03-09] MEDS: PANTOPRAZOLE 40 MG/10 ML VIAL INJ IV SCH (10:00)
[2020-03-09] MEDS: SODIUM CHLOR 0.9% PF (SALINE LOCK) 10ML VIAL/SYR IV SCH ×2 (10:14→21:51)
[2020-03-09] MEDS: ENOXAPARIN SOD 60 MG/0.6 ML SYRINGE SC SCH (10:14)
[2020-03-09] MEDS: DexAMETHasone SOD PHOS 10MG/1ML VIAL INJ IV SCH ×2 (10:14→21:51)
[2020-03-09] MEDS: ASCORBIC ACID 1,000 MG TAB PO SCH (10:15)
[2020-03-09] MEDS: CHOLECALCIFEROL (VITD3) 2,000 UNIT CAP PO SCH (10:15)
[2020-03-09] MEDS: ZINC SULFATE 220mg CAP or TAB PO SCH (10:15)
[2020-03-09] MEDS ORDERED: SODIUM CHLORIDE 0.9% 1,000 ML IV SCH (11:30)
[2020-03-09] MEDS: PHENYLEPHRINE IV 250 ML IV SCH ×3 (12:00→22:56)
[2020-03-09] MEDS: VASOPRESSIN 50 UNITS in D5W 5% 247.5 ML IV SCH (12:00)
[2020-03-09] MEDS: SODIUM BICARBONATE 50ML VIAL 50 ML in SOD CHL 0.45% 1,000 ML IV SCH (14:53)
[2020-03-09] MEDS: CEFEPIME 1 GM in NS 0.9% 50 ML IV SCH (14:54)
[2020-03-09] MEDS: MIDAZOLAM DRIP 50 mg/50mL 50 ML IV SCH (16:30)
[2020-03-09] MEDS: fentaNYL Drip 2500mCg/250mlNS 250 ML IV SCH ×2 (18:27→21:52)
[2020-03-09] MEDS: TPN PER PHARMACY IV NR ×5 (19:44)
[2020-03-09] MEDS ORDERED: TPN PER PHARMACY IV NR ×7 (20:00)
[2020-03-09] MEDS: PROPOFOL 100 ML IV SCH (20:30)
[2020-03-10] VITALS (77 sets, daily range): BP systolic 78–129; BP diastolic 39–71
[2020-03-10] MEDS: SODIUM BICARBONATE 50ML VIAL 50 ML in SOD CHL 0.45% 1,000 ML IV SCH ×2 (01:59→12:30)
[2020-03-10] MEDS: PHENYLEPHRINE IV 250 ML IV SCH ×4 (02:00→22:33)
[2020-03-10] MEDS: ALBUTEROL SULF 2.5 MG/0.5ML(0.5%) NEB SOLN NEB SCH ×5 (02:05→22:00)
[2020-03-10] MEDS: NOREPINEPHRINE 8 MG/250ML KIT 250 ML IV SCH ×3 (04:16→19:30)
[2020-03-10] MEDS: ACCU-CHEK COMFORT CURVE STRIP VI SCH ×3 (06:08→18:00)
[2020-03-10] MEDS: InsuLIN REG 1unit/0.01ml Soln (100units/ml) SC SCH ×3 (06:11→18:00)
[2020-03-10 07:24] LABS: Albumin 1.2 g/dL (3.4-5.0); BUN/Creatinine Ratio 14.4; Bilirubin, Total 2.4 mg/dL (0.2-1.0); Calcium 6.2 mg/dL (8.5-10.1); Phosphorus 7.2 mg/dL (2.5-4.90); Potassium 4.6 mmol/L (3.5-5.1); Pre Albumin 15.7 mg/dL (20.0-40.0)
[2020-03-10] MEDS: dilTIAZem 125mg/125ml BAG KIT 125 ML IV SCH ×2 (07:48→15:38)
[2020-03-10] MEDS: Ensure HIGH Protein Chocolate 8oz Bottle PO SCH ×3 (08:00→18:00)
[2020-03-10] MEDS ORDERED: SODIUM BICARBONATE 8.4 % INJ 50ML VIAL IV ONE (09:00)
[2020-03-10] MEDS ORDERED: ALBUMIN 25% 100 ML IV ONE ×2 (09:00→10:00)
[2020-03-10] MEDS: ENOXAPARIN SOD 60 MG/0.6 ML SYRINGE SC SCH (09:30)
[2020-03-10] MEDS: SODIUM CHLOR 0.9% PF (SALINE LOCK) 10ML VIAL/SYR IV SCH ×2 (09:30→21:27)
[2020-03-10] MEDS: CHOLECALCIFEROL (VITD3) 2,000 UNIT CAP PO SCH (09:30)
[2020-03-10] MEDS: ASCORBIC ACID 1,000 MG TAB PO SCH (09:30)
[2020-03-10] MEDS: ZINC SULFATE 220mg CAP or TAB PO SCH (09:30)
[2020-03-10] MEDS: DexAMETHasone SOD PHOS 10MG/1ML VIAL INJ IV SCH ×2 (09:30→21:27)
[2020-03-10] MEDS: PANTOPRAZOLE 40 MG/10 ML VIAL INJ IV SCH (10:00)
[2020-03-10] MEDS: CEFEPIME 1 GM in NS 0.9% 50 ML IV SCH (15:00)
[2020-03-10] MEDS: fentaNYL Drip 2500mCg/250mlNS 250 ML IV SCH (19:28)
[2020-03-10] MEDS ORDERED: TPN PER PHARMACY IV NR ×7 (20:00)
[2020-03-10] MEDS: PROPOFOL 100 ML IV SCH (20:30)
[2020-03-10] MEDS: VASOPRESSIN 50 UNITS in D5W 5% 247.5 ML IV SCH (21:26)
[2020-03-11] VITALS (83 sets, daily range): BP systolic 77–128; BP diastolic 25–75
[2020-03-11] MEDS: ACCU-CHEK COMFORT CURVE STRIP VI SCH ×4 (00:05→17:36)
[2020-03-11] MEDS: NOREPINEPHRINE 8 MG/250ML KIT 250 ML IV SCH ×5 (00:06→16:28)
[2020-03-11] MEDS: dilTIAZem 125mg/125ml BAG KIT 125 ML IV SCH ×2 (00:06→07:56)
[2020-03-11] MEDS: InsuLIN REG 1unit/0.01ml Soln (100units/ml) SC SCH ×4 (00:09→17:37)
[2020-03-11] MEDS: PHENYLEPHRINE IV 250 ML IV SCH ×4 (02:24→16:27)
[2020-03-11 06:10] LABS: Potassium 4.1 mmol/L (3.5-5.1)
[2020-03-11] MEDS: ALBUTEROL SULF 2.5 MG/0.5ML(0.5%) NEB SOLN NEB SCH ×3 (06:25→18:35)
[2020-03-11 06:39] LABS: Albumin 1.8 g/dL (3.4-5.0); BUN/Creatinine Ratio 12.9; Bilirubin, Total 3.1 mg/dL (0.2-1.0); Calcium 6.2 mg/dL (8.5-10.1); Magnesium 2.1 mg/dL (1.6-2.6); Phosphorus 6.6 mg/dL (2.5-4.90); Total Protein 5.1 g/dL (6.4-8.2)
[2020-03-11] MEDS: VASOPRESSIN 50 UNITS in D5W 5% 247.5 ML IV SCH ×2 (07:56→20:30)
[2020-03-11] MEDS: Ensure HIGH Protein Chocolate 8oz Bottle PO SCH ×3 (08:00→17:42)
[2020-03-11] MEDS ORDERED: SODIUM BICARBONATE 8.4 % INJ 50ML VIAL IV ONE ×2 (09:00→09:08)
[2020-03-11] MEDS: DexAMETHasone SOD PHOS 10MG/1ML VIAL INJ IV SCH ×2 (09:51→22:00)
[2020-03-11] MEDS: PANTOPRAZOLE 40 MG/10 ML VIAL INJ IV SCH (09:51)
[2020-03-11] MEDS: CHOLECALCIFEROL (VITD3) 2,000 UNIT CAP PO SCH (09:52)
[2020-03-11] MEDS: SODIUM CHLOR 0.9% PF (SALINE LOCK) 10ML VIAL/SYR IV SCH ×2 (09:52→22:00)
[2020-03-11] MEDS: ASCORBIC ACID 1,000 MG TAB PO SCH (09:52)
[2020-03-11] MEDS: ZINC SULFATE 220mg CAP or TAB PO SCH (09:52)
[2020-03-11] MEDS: ENOXAPARIN SOD 60 MG/0.6 ML SYRINGE SC SCH (09:52)
[2020-03-11] MEDS ORDERED: EPINEPHrine HCL 250 ML IV SCH (12:30)
[2020-03-11] MEDS: CEFEPIME 1 GM in NS 0.9% 50 ML IV SCH (14:21)
[2020-03-11 16:07] LABS: Albumin 1.6 g/dL (3.4-5.0); Calcium 6.1 mg/dL (8.5-10.1); Potassium 4.5 mmol/L (3.5-5.1)
[2020-03-11 16:08] LABS: Hematocrit 24.3 % (41.0-53.0); Hemoglobin 7.7 g/dL (13.5-17.5); Mean Corpuscular Hgb Conc. 31.9 g/dL (32.0-36.0)
[2020-03-11 16:10] LABS: Mean Corpuscular Hemoglobin 29.8 pg (28.0-32.0); Mean Corpuscular Volume 93.5 fL (80.0-100.0); Platelet Count (auto) 30 10^3/uL (140-450); Red Cell Distribution Width 15.7 % (11.8-14.3); White Blood Cell 21.3 10^3/uL (4.4-10.8)
[2020-03-11] MEDS: fentaNYL Drip 2500mCg/250mlNS 250 ML IV SCH (16:26)
[2020-03-11] MEDS: MIDAZOLAM DRIP 50 mg/50mL 50 ML IV SCH ×2 (16:30→18:28)
[2020-03-11 16:36] LABS: Basophils % (manual) 0 (0.0-2.0); Blast Cells 0; Eosinophils % (manual) 0 (0-7); Myelocytes % 0; Promyelocytes % 0; Reactive Lymphocytes 0
[2020-03-11 16:38] LABS: BUN/Creatinine Ratio 12.9; Total Protein 4.7 g/dL (6.4-8.2)
[2020-03-11] MEDS: PROPOFOL 100 ML IV SCH ×2 (18:27→20:30)
[2020-03-11 18:32] LABS: Band Neutrophils % (manual) 4; Lymphocytes % (manual) 1 (10.0-50.0); Metamyelocytes % 2; Monocytes % (manual) 9 (0-12)
[2020-03-11] MEDS ORDERED: [UNRECOGNIZED DRUG - OTHER] IV NR ×8 (20:00)
[2020-03-11] MEDS ORDERED: CALCIUM GLUC IV NR ×8 (20:00)
[2020-03-11] MEDS ORDERED: SODIUM CHLORIDE IV NR ×8 (20:00)
[2020-03-11] MEDS ORDERED: SODIUM ACETATE IV NR ×8 (20:00)
[2020-03-11] MEDS ORDERED: DOPamine 1600MCG/ML D5W 250 ML IV ONE (21:09)
[2020-03-11] MEDS: DOPamine 1600MCG/ML D5W 250 ML IV SCH (21:15)
[2020-03-12] VITALS (10 sets, daily range): BP systolic 39–111; BP diastolic 11–72
[2020-03-12] MEDS: ALBUTEROL SULF 2.5 MG/0.5ML(0.5%) NEB SOLN NEB SCH ×2 (02:35→06:37)
[2020-03-12] MEDS: DOPamine 1600MCG/ML D5W 250 ML IV SCH (03:00)
[2020-03-12] MEDS: MIDAZOLAM DRIP 50 mg/50mL 50 ML IV SCH (03:03)
[2020-03-12] MEDS: InsuLIN REG 1unit/0.01ml Soln (100units/ml) SC SCH ×2 (05:20)
[2020-03-12] MEDS: ACCU-CHEK COMFORT CURVE STRIP VI SCH ×2 (05:21)
[2020-03-12] MEDS ORDERED: EPINEPHrine HCL 1 MG/10 ML SYRG IV ONE (13:29)
[2020-03-12] MEDS ORDERED: SODIUM BICARBONATE 8.4% INJ 50ML SYRINGE IV ONE (13:29)
== END 2020-03-12 13:30 | DRG 870 ==
LOC: ER 13:44 → OVERFLOW 17:43 → TELE-E-ADS 02-23 09:00 → TELE-EAST 02-24 00:08 → TELE-E-ADS 03-05 18:49 → ICU WEST 03-06 17:07
PROVIDERS: ADMIT Specialist; ATTEND Specialist
PROC: XW033E5 Introduction of Remdesivir Anti-infective into Peripheral Vein, Percutaneous Approach, New Technology Group 5 (ICD-10-PCS; 2020-02-22)
PROC: XW13325 Transfusion of Convalescent Plasma (Nonautologous) into Peripheral Vein, Percutaneous Approach, New Technology Group 5 (ICD-10-PCS; principal; 2020-02-23)
PROC: 05HC33Z Insertion of Infusion Device into Left Basilic Vein, Percutaneous Approach (ICD-10-PCS; 2020-02-25)
PROC: B54NZZA Ultrasonography of Left Upper Extremity Veins, Guidance (ICD-10-PCS; 2020-02-25)
PROC: 02HV33Z Insertion of Infusion Device into Superior Vena Cava, Percutaneous Approach (ICD-10-PCS; 2020-03-03)
PROC: 5A09357 Assistance with Respiratory Ventilation, Less than 24 Consecutive Hours, Continuous Positive Airway Pressure (ICD-10-PCS; 2020-03-05)
PROC: 5A1955Z Respiratory Ventilation, Greater than 96 Consecutive Hours (ICD-10-PCS; 2020-03-06)
PROC: 0BH17EZ Insertion of Endotracheal Airway into Trachea, Via Natural or Artificial Opening (ICD-10-PCS; 2020-03-06)
PROC: 3E0336Z Introduction of Nutritional Substance into Peripheral Vein, Percutaneous Approach (ICD-10-PCS; 2020-03-07)
PROC: 06HN33Z Insertion of Infusion Device into Left Femoral Vein, Percutaneous Approach (ICD-10-PCS; 2020-03-08)
PROC: 5A1D70Z Performance of Urinary Filtration, Intermittent, Less than 6 Hours Per Day (ICD-10-PCS; 2020-03-08)
PROC: 5A1D70Z Performance of Urinary Filtration, Intermittent, Less than 6 Hours Per Day (ICD-10-PCS; 2020-03-10)
DX: A41.89 Other specified sepsis (principal); U07.1 COVID-19; R65.21 Severe sepsis with septic shock; J96.01 Acute respiratory failure with hypoxia; J12.82 Pneumonia due to coronavirus disease 2019; N17.9 Acute kidney failure, unspecified; E87.1 Hypo-osmolality and hyponatremia; J44.0 Chronic obstructive pulmonary disease with (acute) lower respiratory infection; Z68.1 Body mass index [BMI] 19.9 or less, adult; E44.0 Moderate protein-calorie malnutrition; E87.4 Mixed disorder of acid-base balance; I25.9 Chronic ischemic heart disease, unspecified; I48.91 Unspecified atrial fibrillation; Z99.2 Dependence on renal dialysis; Z95.1 Presence of aortocoronary bypass graft; Z95.5 Presence of coronary angioplasty implant and graft; Z74.01 Bed confinement status
CPT/HCPCS: 36415; 36569; 36600; 71045; 71250; 80048; 80053; 80076; 82040; 82728; 82805; 82962; 83605; 83735; 84100; 84478; 84484; 85007; 85025; 85027; 85379; 85610; 85730; 86850; 86900; 86901; 87426; 90935; 93005; 94002; 94003; 94640; 94660; 96360; 97110; 97116; 97530; C9113; G0378; J0171; J0610; J0696; J1100; J1815; J2250; J2543; J2704; J7060; J7131; P9047